=== PATIENT | male | born 1985 | race Caucasian/White ===

== ENCOUNTER 2017-07-16 12:59 | Day surgery (SDC) | payer OTHER ==
[~2017-07-16] VITALS: Ht 180.3 cm; Wt 82.4 kg
[2017-07-16 13:39] VITALS: Ht 180.3 cm; Wt 82.4 kg
[2017-07-16 14:43] VITALS: BP 127/74; PULSE 87; RESP 20
[2017-07-16] MEDS ORDERED: LIDOCAINE 2% (SDV) 5 ML INJ ONE (14:59)
[2017-07-16] MEDS ORDERED: PROPOFOL 20 ML ONE (14:59)
[2017-07-16] MEDS ORDERED: MIDAZOLAM 1 MG/ML 2 ML INJ ONE (14:59)
--- NOTE | 2017-07-16 15:26 | OPPN ---
Date/Time of Note Date/Time of Note DATE: 07/16/17 TIME: 15:22 Proc Note GI Procedure date: Jul 16, 2017 Pre-procedure Diagnosis * Hematochezia/diarrhea Post-procedure Diagnosis Assessment: * 12 mm pedunculated polyp sigmoid colon. Snared and retrieved * Otherwise normal colonic mucosa. * Rule out microscopic, lymphocytic or collagenous colitis. Biopsies obtained * Large internal hemorrhoids. Plan: * Review pathology * Annual Hemoccult stool testing * Surveillance colonoscopy in 3 years Operation Performed * Colonoscopy with snare polypectomy * Colonoscopy with biopsies Surgeon: MICHELLE HERRERA MD Anesthesia Type: MAC Estimated blood loss: none Transfusion Required: no Specimens 1. Sigmoid polyp 2. Random colon Grafts/Implants: none Complications: no Pt Condition post procedure: stable Disposition: PACU Procedure Description After informed consent, with the patient/relatives understanding the procedure, its indications and potential risks and complications, including but not limited to: Allergic reaction, bleeding, perforation, infection, and after all pertinent questions were answered to the patient's satisfaction, the patient/ relatives signed the witnessed informed consent. Following this, premedication was administered slowly IV push under careful cardiovascular and respiratory monitoring with pulse OX[employer], automatic blood pressure, and enrollment management director. Once the sedative effect was achieved, the patient was placed in the left lateral decubitus position, digital rectal examination was performed. The colonoscope was then introduced and advanced under visual control throughout all segments of the colon including: the rectum, sigmoid, descending colon, splenic flexure, transverse colon, hepatic flexure, ascending colon and finally reaching the cecum which was clearly identified by transillumination, finger indentation and the ileocecal valve. Careful examination of the mucosa of the lower gastrointestinal tract both on insertion as well as withdrawal of the instrument disclosed the following findings: PREPARATION QUALITY: [Adequate], RECTAL EXAM: The anorectal area was visualized examined and digital rectal examination performed with the following findings: No evidence of perirectal disease, no masses. COLONIC MUCOSA: The mucosa of all segments of the colon was carefully examined and showed the following findings: There is a 12 mm pedunculated polyp in the mid sigmoid colon. Snared and retrieved. Otherwise the colonic mucosa is unremarkable. Random biopsies were obtained to rule out microscopic, lymphocytic or collagenous colitis. Large internal hemorrhoids are present. Otherwise the examined mucosa appears within normal limits. There is no evidence of inflammatory changes, diverticular formation, other neoplasms, vascular malformation, or any other abnormality. The instrument was then withdrawn, the patient tolerated the procedure well and was transferred out of the Endoscopy Suite awake and in good condition to continue recovery under observation. MICHELLE HERRERA MD Jul 16, 2017 15:26
[2017-07-16 15:55] VITALS: BP 125/78; RESP 14
== END 2017-07-16 16:05 | disposition home or self-care (01) ==
LOC: GIL 12:59 → EDBD 12:59 → GIL 13:07
PROVIDERS: ATTEND Internal Medicine Gastroenterology
DX: K92.1 Melena (principal); D12.5 Benign neoplasm of sigmoid colon; F17.200 Nicotine dependence, unspecified, uncomplicated
CPT/HCPCS: 45380; 88305; J2250; Z7610